=== PATIENT | male | born 1985 | race Caucasian/White ===

== ENCOUNTER 2018-04-11 10:37 | Emergency (ER) | payer BC, OTHER ==
[~2018-04-11] VITALS: Wt 90.7 kg
[~2018-04-11 10:37] MED LIST: CLARITIN10 MG PO; FLONASE ALLERG9.9 ML NAS; HYDROCODONE BIT1 T11 PO; IBU800 M1 PO; MOTRIN800 MG PO; PREDNISONE10 MG PO; SYNTHROID0.05 MG PO; Synthroid,Levo75 MCG PO
[2018-04-11] MEDS ORDERED: OCUFLOX 0.3% 5 M5 ML OPH (10:45)
[2018-04-11] MEDS ORDERED: FLOXIN10 ML OT (11:07)
[2018-04-11] MEDS ORDERED: AUGMENTIN 875875 MG PO (11:07)
== END 2018-04-11 11:13 | disposition home or self-care (01) ==
LOC: ED 10:37
DX: H66.92 Otitis media, unspecified, left ear (principal); Z88.1 Allergy status to other antibiotic agents; Z79.899 Other long term (current) drug therapy

== ENCOUNTER → 2020-01-03 | Outpatient (CLI) | payer OTHER ==
[~2020-01-03] MED LIST changes: +AUGMENTIN 875875 MG PO; +FLOXIN10 ML OT; +OCUFLOX 0.3% 5 M5 ML OPH
[2020-01-03 10:06] LABS: BASO % 0.7 % (0.0-1.0); EOS # 0.3 10*3/uL (0.0-0.4); HEMATOCRIT 47.5 % (42.0-52.0); HEMOGLOBIN 15.8 g/dl (14.0-18.0); LYMPH # 1.7 10*3/uL (1.3-4.4); MEAN CELL VOLUME 90.8 fl (80.0-94.0); MEAN CORPUSCULAR HGB 30.2 pg (27.0-31.0); MEAN CORPUSCULAR HGB CONC 33.3 g/dl (33.0-37.0); MEAN PLATELET VOLUME 10.3 fl (9.6-12.3); MONO # 0.5 10*3/uL (0.1-1.0); MONO % 8.6 % (3.0-9.0); NEUT # 2.9 10*3/uL (2.3-7.9); NEUT % 53.3 % (47.0-73.0); PLATELET COUNT AUTOMATED 256 10*3/uL (130-400); RED BLOOD COUNT 5.23 10*6/uL (4.50-5.90); RED CELL DISTRI WIDTH 12.1 % (0-14.5); RETICULOCYTE % 1.54 % (0.50-2.50); WHITE BLOOD COUNT 5.4 10*3/uL (4.8-10.8)
[2020-01-03 10:24] LABS: BACTERIA TRACE; BILIRUBIN NEGATIVE (NEGATIVE); BLOOD TRACE-INTACT (NEGATIVE); CLARITY SL CLOUDY (CLEAR); COLOR YELLOW (YELLOW); GLUCOSE NEGATIVE (NEGATIVE); KETONE NEGATIVE (NEGATIVE); LEUKO ESTERASE NEGATIVE (NEGATIVE); NITRITE NEGATIVE (NEGATIVE); PH 6.5 (5.0-9.0); SPECIFIC GRAVITY 1.015 (1.005-1.030); UROBILINOGEN 0.2 E.U./dl (0.2-1.0); WBC 0-2 wbc/hpf (0-5)
[2020-01-03 10:25] LABS: MUCOUS 1+
[2020-01-03 10:38] LABS: ALBUMIN 3.7 gm/dl (3.1-4.5); BUN 19 mg/dl (7-24); CHLORIDE 106 mmol/L (98-107); CHOLESTEROL 162 mg/dL (<200); GAMMA GLUTAMYL TRANSPEPTIDASE 18 U/L (15-85); POTASSIUM 4.3 mmol/L (3.5-5.1); SGOT/AST 12 IU/L (3-35); SGPT/ALT 23 U/L (12-78); SODIUM 136 mmol/L (136-145); TRIGLYCERIDES 291 mg/dl (<150); VLDL CHOLESTEROL 58 mg/dL (6-40)
[2020-01-03 10:47] LABS: ALKALINE PHOSPHATASE 92 U/L (45-117); CREATININE 1.05 mg/dL (0.70-1.30); HDL CHOLESTEROL 26 mg/dl (40-60); IRON 85 ug/dL (65-175); LDL CHOLESTEROL 78 mg/dL (9-159); T3 UPTAKE 33 % (31-39); THYROXINE (T4) TOTAL 9.3 ug/dl (4.5-12.1); TOTAL IRON BINDING CAPACITY 349 ug/dl (250-450); TOTAL PROTEIN 7.6 gm/dL (6.4-8.2)
[2020-01-03 11:24] LABS: FERRITIN 106.1 ng/mL (22.0-322.0); VITAMIN D, 25-HYDROXY 11.4 ng/mL (30-100)
== END | disposition home or self-care (01) ==
LOC: LAB 09:02
PROVIDERS: Family Medicine
DX: R79.89 Other specified abnormal findings of blood chemistry (principal); R53.83 Other fatigue; E55.9 Vitamin D deficiency, unspecified

== ENCOUNTER 2020-08-30 16:19 | Emergency (ER) | payer OTHER ==
[~2020-08-30] VITALS: Ht 172.7 cm; Wt 63.5 kg
[2020-08-30] MEDS ORDERED: ZYRTEC10 M2 PO (16:56)
== END 2020-08-30 16:57 | disposition home or self-care (01) ==
LOC: ED 16:19
DX: H66.92 Otitis media, unspecified, left ear (principal); Z79.899 Other long term (current) drug therapy

== ENCOUNTER 2024-02-08 17:28 | Emergency (ER) | payer BC ==
[~2024-02-08] VITALS: Ht 172.7 cm; Wt 113.4 kg
[~2024-02-08 17:28] MED LIST changes: +ZYRTEC10 M2 PO
== END 2024-02-08 18:33 | disposition home or self-care (01) ==
LOC: ED 17:28
DX: S93.401A Sprain of unspecified ligament of right ankle, initial encounter (principal); Z88.8 Allergy status to other drugs, medicaments and biological substances; Z98.890 Other specified postprocedural states; W20.8XXA Other cause of strike by thrown, projected or falling object, initial encounter; Y93.89 Activity, other specified; Y92.009 Unspecified place in unspecified non-institutional (private) residence as the place of occurrence of the external cause; Y99.8 Other external cause status